=== PATIENT | male | born 1940 | race Caucasian/White ===

== ENCOUNTER 2025-08-22 18:55 | Emergency (ER) | payer SELFPAY ==
[~2025-08-22] VITALS: Ht 175.3 cm; Wt 100.0 kg
[2025-08-22 19:00] VITALS: O2SAT 100
[2025-08-22] MEDS ORDERED: ALBUTEROL (0.083%) 2.5MG/3ML NEB HHN ONE (19:15)
[2025-08-22] MEDS ORDERED: IPRATROPIUM BROMIDE (0.02%) 0.5MG/2.5ML NEB HHN ONE (19:15)
[2025-08-22] MEDS ORDERED: VANCOMYCIN 1G PREMIX 200 ML IV ONE (19:15)
[2025-08-22 19:22] VITALS: PULSE 93; RESP 20; O2SAT 100
[2025-08-22] MEDS ORDERED: HYDROMORPHONE HCL/PF 2MG/ML INJ IV ONE (19:30)
[2025-08-22] MEDS ORDERED: HYDROMORPHONE HCL/PF 1MG/ML INJ IV NR (19:30)
[2025-08-22] MEDS: SODIUM CHLORIDE 0.9% 1,000 ML IV ONE (19:38)
[2025-08-22] MEDS: METHYLPREDNISOLONE SOD SUCC 125MG/2ML (ACT-O-VIAL) IV ONE (19:38)
[2025-08-22] MEDS: PIPERACILLIN/TAZO 3.375G/50ML 50 ML IV ONE (19:38)
[2025-08-22] MEDS: PROPOFOL 10MG/ML 100ML 100 ML IV SCH (19:40)
[2025-08-22 19:46] LABS: CREATININE 1.6 mg/dL (0.6-1.3); UREA NITROGEN BLOOD 27 mg/dL (9-23)
[2025-08-22 19:47] LABS: PROTEIN TOTAL 5.1 g/dL (6.0-8.3)
[2025-08-22 19:48] LABS: ASPARTATE AMINOTRANSFERASE 65 IU/L (<34); BASOPHILS % 0.3 % (0.0-2.0); BILIRUBIN DIRECT < 0.1 mg/dL (<=3.0); BILIRUBIN TOTAL 0.2 mg/dL (0.1-1.0); EOSINOPHILS % 0.3 % (0.0-5.0); HEMATOCRIT. 36.8 % (42.0-52.0); HEMOGLOBIN. 10.8 g/dL (14.0-18.0); LYMPHOCYTES % 18.1 % (20.0-50.0); MEAN PLATELET VOLUME 9.6 fl (7.4-10.4); MONOCYTES % 2.6 % (2.0-8.0); NEUTROPHILS % 78.7 % (40.0-76.0); PLATELET 174 x1000/uL (130-400); RED BLOOD CELL COUNT 3.45 mill/uL (4.7-6.1); RED CELL DISTRIBUTION WIDTH 17.1 % (11.6-14.6)
[2025-08-22 19:58] VITALS: BP 102/81; PULSE 74; RESP 21; TEMP 36.5; O2SAT 100
[2025-08-22 20:14] LABS: TROPONIN I HIGH SENSITIVITY 4655 ng/L (3.0-53)
[2025-08-22] MEDS: AZITHROMYCIN 500MG/250ML 250 ML IV ONE (20:20)
[2025-08-22 20:23] LABS: INR 3.2
== END 2025-08-22 21:11 ==
LOC: ER 18:55 → EDBD 18:55 → ER 21:11 → CMPBEDREQ 08-23 07:23
DX: I21.4 Non-ST elevation (NSTEMI) myocardial infarction (principal); I44.7 Left bundle-branch block, unspecified; I46.9 Cardiac arrest, cause unspecified; J44.1 Chronic obstructive pulmonary disease with (acute) exacerbation; J96.00 Acute respiratory failure, unspecified whether with hypoxia or hypercapnia; I11.0 Hypertensive heart disease with heart failure
CPT/HCPCS: 80076; 80048; 82962; 83880; 83605; 83735; 85025; 85379; 85610; 85730; 87040; 84484; 36415; 84145; 71045; 31500; 94664; 93005; 94070; 31720; 96367; 96365; 96375; 99291; 99292; J0456; J2919; J2543; J2704; J7030; Z7610 ×4; 94002; J1171